=== PATIENT | male | born 1975 | race African-American/Black ===

== ENCOUNTER 2020-08-26 16:27 | Emergency (ER) | payer MEDICAID, SELFPAY ==
--- NOTE | ~2020-08-26 | XR_ITS ---
EXAMINATION: CHEST 2 VIEWS CLINICAL INFORMATION: high bs . COMPARISON: No recent pertinent prior studies are available for comparison. TECHNIQUE: PA and lateral views of the chest obtained. FINDINGS: The lungs are hypoexpanded. No focal infiltrate, effusion, edema, or pneumothorax. Cardiac and mediastinal silhouettes are within normal limits for technique. No acute bony abnormality seen XR/XR chest 2V IMPRESSION: No evidence of acute disease
--- NOTE | 2020-08-26 17:25 | ECG_ITS ---
Test Reason : HYPERGLYCEMIA Blood Pressure : / mmHG Vent. Rate : 050 BPM Atrial Rate : 050 BPM P-R Int : 170 ms QRS Dur : 080 ms QT Int : 412 ms P-R-T Axes : 025 025 017 degrees QTc Int : 375 ms Sinus bradycardia Otherwise normal ECG No previous ECGs available Referred By: Lyly Trotter Electronically Signed By:DIXON BOATENG
[2020-08-26 18:23] LABS: MANUAL DIFF FLAG NO
[2020-08-26 18:28] LABS: Basophils Percent Auto 0.4 % (0-2); Eosinophils Absolute Auto 0.1 X10*3/uL (0.0-0.4); Eosinophils Percent Auto 2.2 % (0-4); Hemoglobin 14.8 g/dl (14.0-18.0); Imm Gran Abs Auto 0.02 X10*3/uL (0.00-0.03); Imm Gran Pct Auto 0.4 % (0.0-0.4); Lymphocytes Absolute Auto 2.3 X10*3/uL (1.2-4.9); Lymphocytes Percent Auto 49.6 % (20-40); Mean Corpuscular HGB Conc 32.9 g/dl (31.0-36.0); Mean Corpuscular Hemoglobin 29.8 pg (27.0-33.0); Mean Corpuscular Volume 90.5 fL (80-98); Mean Platelet Volume 12.3 fL (9.4-12.4); Monocytes Absolute Auto 0.3 X10*3/uL (0.1-1.2); Monocytes Percent Auto 6.7 % (2-11); Neutrophils Absolute Auto 1.9 X10*3/uL (2.0-8.3); Neutrophils Percent Auto 40.7 % (45-73); Platelet Count 165 X10*3/uL (160-400); Red Blood Count 4.97 X10*6/uL (4.60-5.80); Red Cell Distribution Width 11.9 % (11.0-16.0); White Blood Count 4.6 X10*3/uL (4.8-10.8)
[2020-08-26 18:38] LABS: INTERNATIONAL NORM RATIO 0.9 (0.9-1.1); Prothrombin Time 11.1 SEC (10.8-13.0)
[2020-08-26 18:58] LABS: Alanine Aminotransferase 43 U/L (0-40); Albumin Level 4.7 g/dL (3.5-5.0); Alkaline Phosphatase 72 U/L (39-117); Anion Gap 16 (12-20); Aspartate Amino Transferase 30 U/L (5-37); Bilirubin Direct 0.2 mg/dL (0.0-0.5); Bilirubin Total 0.5 mg/dL (0.0-1.0); Blood Urea Nitrogen 13 mg/dL (9-16); Calcium 9.8 mg/dL (8.4-10.2); Carbon Dioxide 26 mmol/L (22-29); Chloride 105 mmol/L (96-108); Estimated Glomerular Filt Rate > 60; Glucose Random 94 mg/dL (60-115); Magnesium 1.9 mg/dL (1.6-2.6); Potassium 4.7 mmol/L (3.3-5.1); Sodium 142 mmol/L (135-145); Total Protein 7.9 g/dL (6.5-8.0)
[2020-08-26 19:44] VITALS: BP 132/84; PULSE 59; RESP 18; TEMP 36.9; O2SAT 100; BMI 32.8
--- NOTE | 2020-08-26 19:44 | PC.NURSE ---
PATIENT IN WAITING ROOM, CALLED MULTIPLE TIMES FOR TRIAGE PRIOR.
[2020-08-26 19:54] LABS: Acetone, serum QL Negative (Negative)
[2020-08-26 20:00] VITALS: BP 146/95; PULSE 56; RESP 18; O2SAT 99
--- NOTE | 2020-08-26 20:41 | ED.GENADULT ---
HPI - General Adult General Chief complaint: General Medical Stated complaint: high bs Time Seen by Provider: 08/26/20 17:25 Source: patient Mode of arrival: ambulatory Limitations: no limitations History of Present Illness HPI narrative: Dizziness with high blood sugar for one week Onset (ago): week(s) Severity: moderate Associated symptoms: weakness Related Data Previous Rx's Medication Instructions Recorded meclizine 25 mg PO TID PRN #14 tab 08/26/20 Allergies Allergy/AdvReac Type Severity Reaction Status Date / Time No Known Allergies Allergy Verified 08/26/20 17:25 Review of Systems Constitutional: Constitutional: Reports no additional constitutional complaints Eyes: Eyes: Reports no additional eye complaints ENT: Denies dizziness Cardiovascular: Cardiovascular: Reports no additional cardiovascular complaints Respiratory: Respiratory: Reports as per HPI Gastrointestinal: Gastrointestinal: Reports no additional gastrointestinal complaints Musculoskeletal: Musculoskeletal: Reports no additional musculoskeletal complaints Integumentary/Breasts: Skin/Breast: Denies rash Neurologic: Reports system reviewed and no additional complaints, except as documented, Denies dizziness and Denies Sensory deficit (Neuro) Psychiatric: Psychiatric: Denies anxiety [facility] Past Medical History Medical History Diabetes Social History Social History Advance Directives: No Advance Directives Information Provided: Yes Physical Exam Vital Signs: Vital Signs: Last Vital Signs Temp 98.5 F 08/26/20 19:44 Pulse 59 08/26/20 19:44 Resp 18 08/26/20 19:44 BP 132/84 08/26/20 19:44 Pulse Ox 100 08/26/20 19:44 Body Mass Index 32.8 Const: General: healthy appearing Nutritional Appearance: average body habitus Orientation/consciousness: oriented to person and patient oriented x3 Limitations: no limitations HENMT: Head: Yes normal to inspection Ears: external ears normal General nose exam: Normal external nose present Mouth: Normal oral and palatal mucosa present and oropharynx normal Throat: Yes posterior oropharynx normal Eyes: General: appearance normal, both eyes and all related structures Neck: Other: supple Neck: Yes normal visual inspection Chest: Chest palpation & inspection: normal inspection of the chest Resp: Auscultation: clear to auscultation bilaterally Cardio: Jugular venous distension: no JVD Rate: regular rate Rhythm: regular rhythm Heart sounds: S1 normal heart sound present and S2 normal heart sound present GI: Inspection: Yes normal to inspection Palpation (GI): Soft to palpation, nontender and No hepatosplenomegaly present Auscultation: normal bowel sounds : General: Yes no CVA tenderness Back/Spine/Pelvis: Back: no CVA tenderness Skin: General skin exam: no rashes or lesions noted Neuro: Other: slight room spinning with body positioning, no nystagmus General: oriented to person and patient oriented x3 Cranial nerves: Yes CN's II-XII intact bilaterally Motor exam (neuro): 5/5 motor strength present throughout Sensory Exam: No Sensory deficit (Neuro) Extrem: General: Yes normal to inspection Psych: Appearance: grossly normal Medical Decision Making MDM Narrative Medical decision making narrative: Impression is either hyperglycemia now resolved or vertigo. Will start meclizine and dc home Lab Data Result diagrams: 08/26/20 18:13 08/26/20 18:13 Labs: Lab Results 08/26/20 08/26/20 08/26/20 Range/Units 18:13 18:13 18:13 WBC 4.6 L (4.8-10.8) X10*3/uL RBC 4.97 (4.60-5.80) X10*6/uL Hgb 14.8 (14.0-18.0) g/dl Hct 45.0 (42-52) % MCV 90.5 (80-98) fL MCH 29.8 (27.0-33.0) pg MCHC 32.9 (31.0-36.0) g/dl RDW 11.9 (11.0-16.0) % Plt Count 165 (160-400) X10*3/uL MPV 12.3 (9.4-12.4) fL Immature Gran % (Auto) 0.4 (0.0-0.4) % Neut % (Auto) 40.7 L (45-73) % Lymph % (Auto) 49.6 H (20-40) % [place] % (Auto) 6.7 (2-11) % Eos % (Auto) 2.2 (0-4) % Baso % (Auto) 0.4 (0-2) % Lymph # (Auto) 2.3 (1.2-4.9) X10*3/uL [place] # (Auto) 0.3 (0.1-1.2) X10*3/uL Eos # (Auto) 0.1 (0.0-0.4) X10*3/uL Baso # (Auto) 0.0 (0.0-0.2) X10*3/uL Abs Immat Gran (auto) 0.02 (0.00-0.03) X10*3/uL Absolute Neuts (auto) 1.9 L (2.0-8.3) X10*3/uL Absolute Nucleated RBC 0.000 (0.0-0.012) X10*3/uL Nucleated RBC % (auto) 0.0 (0.0-0.2) /100WBC Hold Purple Top SEE NOTE PT 11.1 (10.8-13.0) SEC INR 0.9 (0.9-1.1) Sodium (135-145) mmol/L Potassium (3.3-5.1) mmol/L Chloride (96-108) mmol/L Carbon Dioxide (22-29) mmol/L Anion Gap (12-20) BUN (9-16) mg/dL Creatinine (0.5-1.4) mg/dL Estim Creat Clear Calc Estimated GFR Random Glucose (60-115) mg/dL Calcium (8.4-10.2) mg/dL Magnesium (1.6-2.6) mg/dL Total Bilirubin (0.0-1.0) mg/dL Direct Bilirubin (0.0-0.5) mg/dL AST (5-37) U/L ALT (0-40) U/L Alkaline Phosphatase (39-117) U/L Total Protein (6.5-8.0) g/dL Albumin (3.5-5.0) g/dL Acetone, Qual (Negative) 08/26/20 Range/Units 18:13 WBC (4.8-10.8) X10*3/uL RBC (4.60-5.80) X10*6/uL Hgb (14.0-18.0) g/dl Hct (42-52) % MCV (80-98) fL MCH (27.0-33.0) pg MCHC (31.0-36.0) g/dl RDW (11.0-16.0) % Plt Count (160-400) X10*3/uL MPV (9.4-12.4) fL Immature Gran % (Auto) (0.0-0.4) % Neut % (Auto) (45-73) % Lymph % (Auto) (20-40) % [place] % (Auto) (2-11) % Eos % (Auto) (0-4) % Baso % (Auto) (0-2) % Lymph # (Auto) (1.2-4.9) X10*3/uL [place] # (Auto) (0.1-1.2) X10*3/uL Eos # (Auto) (0.0-0.4) X10*3/uL Baso # (Auto) (0.0-0.2) X10*3/uL Abs Immat Gran (auto) (0.00-0.03) X10*3/uL Absolute Neuts (auto) (2.0-8.3) X10*3/uL Absolute Nucleated RBC (0.0-0.012) X10*3/uL Nucleated RBC % (auto) (0.0-0.2) /100WBC Hold Purple Top PT (10.8-13.0) SEC INR (0.9-1.1) Sodium 142 (135-145) mmol/L Potassium 4.7 (3.3-5.1) mmol/L Chloride 105 (96-108) mmol/L Carbon Dioxide 26 (22-29) mmol/L Anion Gap 16 (12-20) BUN 13 (9-16) mg/dL Creatinine 0.96 (0.5-1.4) mg/dL Estim Creat Clear Calc TNP Estimated GFR > 60 Random Glucose 94 (60-115) mg/dL Calcium 9.8 (8.4-10.2) mg/dL Magnesium 1.9 (1.6-2.6) mg/dL Total Bilirubin 0.5 (0.0-1.0) mg/dL Direct Bilirubin 0.2 (0.0-0.5) mg/dL AST 30 (5-37) U/L ALT 43 H (0-40) U/L Alkaline Phosphatase 72 (39-117) U/L Total Protein 7.9 (6.5-8.0) g/dL Albumin 4.7 (3.5-5.0) g/dL Acetone, Qual Negative (Negative) Discharge Plan Discharge Clinical Impression: Vertigo, Hyperglycemia Patient Disposition: Home, Self-Care Instructions: Vertigo (ED), Diabetic Hyperglycemia (ED) Prescriptions: New meclizine 25 mg tablet 25 mg PO TID PRN (Reason: dizziness) Qty: 14 RF: 0 Referrals: Daljit Barrett MD [Primary Care Provider] - 2 days Interventions: LWBS Worksheet Last Done: 08/26/20 19:11
[2020-08-26] MEDS: Meclizine HCl 25 MG TABLET PO (20:59)
[2020-08-27 06:58] LABS: Glucose, Whole Blood 112 mg/dL (60-115)
== END 2020-08-26 21:11 | disposition home or self-care (01) ==
PROVIDERS: Physician Assistant Medical; Emergency Provider Emergency Medicine; PCP Internal Medicine
DX: R42 Dizziness and giddiness (principal); E11.65 Type 2 diabetes mellitus with hyperglycemia
CPT/HCPCS: 36415; 71046; 80048; 80076; 82009; 82947; 83735; 85025; 85610; 93005; 99283; 99284

== ENCOUNTER 2020-10-07 22:50 | Emergency (ER) | payer MEDICAID, SELFPAY ==
--- NOTE | ~2020-10-07 | XR_ITS ---
EXAMINATION: XR CHEST CLINICAL INFORMATION: Chest pain COMPARISON: 08/26/2020 TECHNIQUE: Frontal view of the chest was obtained. FINDINGS: Lung volumes are symmetric. No focal consolidation is seen. No evidence of pneumothorax, pleural effusion, or pulmonary edema. The cardiomediastinal contour is unremarkable. No acute osseous findings are seen. XR/XR chest 1V IMPRESSION: No acute cardiopulmonary findings.
--- NOTE | 2020-10-07 07:37 | ECG_ITS ---
Test Reason : CHEST PAIN Blood Pressure : / mmHG Vent. Rate : 058 BPM Atrial Rate : 058 BPM P-R Int : 162 ms QRS Dur : 080 ms QT Int : 384 ms P-R-T Axes : 046 024 024 degrees QTc Int : 376 ms Sinus bradycardia Normal EKG When compared with ECG of 26-AUG-2020 18:02, No significant change was found Referred By: Luis Felipe Cooper Electronically Signed By:DIXON BOATENG
[2020-10-08 00:09] VITALS: BP 119/82; PULSE 57; RESP 16; TEMP 36.5; O2SAT 98; BMI 27.4
--- NOTE | 2020-10-08 00:49 | ECG_ITS ---
Test Reason : CHEST PAIN Blood Pressure : / mmHG Vent. Rate : 057 BPM Atrial Rate : 057 BPM P-R Int : 168 ms QRS Dur : 080 ms QT Int : 408 ms P-R-T Axes : 049 034 027 degrees QTc Int : 397 ms Sinus bradycardia Otherwise normal ECG When compared with ECG of 07-OCT-2020 23:07, No significant change was found Referred By: Luis Felipe Cooper Electronically Signed By:DIXON BOATENG
--- NOTE | 2020-10-08 00:50 | ED.GENADULT ---
HPI - General Adult General Chief complaint: General Medical Stated complaint: CHEST PALPITATIONS Time Seen by Provider: 10/08/20 00:48 Source: patient Mode of arrival: ambulatory Limitations: no limitations History of Present Illness HPI narrative: Patient with no known coronary artery disease history of diabetes notice palpitation episodes since yesterday evening feel strong extra beat off and on with chest discomfort , numbness feeling of the left side of the body get worse on deep breath patient never had similar complaints in the past no shortness of breath no cough no diaphoresis no nausea no vomiting no relation with breathing no cough pain increases on palpation Related Data Previous Rx's Medication Instructions Recorded meclizine 25 mg PO TID PRN #14 tab 08/26/20 Allergies Allergy/AdvReac Type Severity Reaction Status Date / Time No Known Allergies Allergy Verified 08/26/20 17:25 Review of Systems Review of Systems: Constitutional : No Weight loss, No Fever, No Chills ENT/Mouth : No sore throat, No Rhinorrhea Eyes: No Eye Pain, No Swelling Cardiovascular : +Chest Pain, + palpitations Respiratory : No Cough, No Sputum, no shortness of breath Gastrointestinal : no Nausea, No Vomiting, No Diarrhea, No abdominal Pain, no black stools Genitourinary : No Dysuria, No Urinary Frequency Musculoskeletal : No joint pain, No Myalgias, No Joint Swelling Skin : No Skin Lesions, No rash Neuro : No Weakness, No Numbness, No Dizziness, No Headache Psych : No Anxiety/Panic, No Depression Heme/Lymph: No Bruising, No Lymphadenopathy Endocrine : No Polyuria, No Polydipsia All other systems reviewed and are negative [facility] Past Medical History Medical History Diabetes Social History Social History Alcohol intake: current Alcohol intake frequency: a few times a week Smoking Status: Current every day smoker Use of substances other than those prescribed or required for medical reasons: No Advance Directives: No Advance Directives Information Provided: No Physical Exam Vital Signs: Vital Signs: Last Vital Signs Temp 97.7 F 10/08/20 00:09 Pulse 57 10/08/20 00:09 Resp 16 10/08/20 00:09 BP 119/82 10/08/20 00:09 Pulse Ox 98 10/08/20 00:09 Body Mass Index 27.4 Appearance: Alert. Oriented X3. No acute distress. Eyes: PERRLA, No Nystagmus ENT: Pharynx normal. Oral Mucosa moist Neck: Normal inspection. Neck supple. CVS: Normal heart rate and rhythm. Pulses normal. Respiratory: No respiratory distress. Equal air entry bilateral, no wheezing/rales/rhonchi Abdomen: Soft and nontender. Bowel sounds are present, no mass palpable, no CVA tenderness Skin: Skin warm and dry. Normal skin color. Normal skin turgor. Extremities: No lower extremity edema. No calf tenderness Neuro: Oriented X 3. No motor deficit. 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 Result diagrams: 10/08/20 01:24 10/08/20 01:24 Labs: Lab Results 10/08/20 10/08/20 10/08/20 Range/Units 01:24 01:24 01:24 WBC 3.8 L (4.8-10.8) X10*3/uL RBC 4.65 (4.60-5.80) X10*6/uL Hgb 14.0 (14.0-18.0) g/dl Hct 42.1 (42-52) % MCV 90.5 (80-98) fL MCH 30.1 (27.0-33.0) pg MCHC 33.3 (31.0-36.0) g/dl RDW 12.0 (11.0-16.0) % Plt Count 165 (160-400) X10*3/uL MPV 11.4 (9.4-12.4) fL Immature Gran % (Auto) 0.3 (0.0-0.4) % Neut % (Auto) 34.3 L (45-73) % Lymph % (Auto) 54.4 H (20-40) % [place] % (Auto) 8.0 (2-11) % Eos % (Auto) 2.7 (0-4) % Baso % (Auto) 0.3 (0-2) % Lymph # (Auto) 2.0 (1.2-4.9) X10*3/uL [place] # (Auto) 0.3 (0.1-1.2) X10*3/uL Eos # (Auto) 0.1 (0.0-0.4) X10*3/uL Baso # (Auto) 0.0 (0.0-0.2) X10*3/uL Abs Immat Gran (auto) 0.01 (0.00-0.03) X10*3/uL Absolute Neuts (auto) 1.3 L (2.0-8.3) X10*3/uL Absolute Nucleated RBC 0.000 (0.0-0.012) X10*3/uL Nucleated RBC % (auto) 0.0 (0.0-0.2) /100WBC PT 10.6 L (10.8-13.0) SEC INR 0.9 (0.9-1.1) APTT 44.5 H (24.1-38.0) SEC Sodium 141 (135-145) mmol/L Potassium 4.4 (3.3-5.1) mmol/L Chloride 105 (96-108) mmol/L Carbon Dioxide 28 (22-29) mmol/L Anion Gap 12 (12-20) BUN 15 (9-16) mg/dL Creatinine 1.01 (0.5-1.4) mg/dL Estim Creat Clear Calc 86.9 Estimated GFR > 60 Random Glucose 121 H (60-115) mg/dL Calcium 9.8 (8.4-10.2) mg/dL Total Bilirubin 0.6 (0.0-1.0) mg/dL Direct Bilirubin 0.2 (0.0-0.5) mg/dL AST 28 (5-37) U/L ALT 34 (0-40) U/L Alkaline Phosphatase 66 (39-117) U/L Troponin I High Sens (<3.5-35.0) ng/L Total Protein 7.1 (6.5-8.0) g/dL Albumin 4.3 (3.5-5.0) g/dL /11/23 Range/Units 01:24 WBC (4.8-10.8) X10*3/uL RBC (4.60-5.80) X10*6/uL Hgb (14.0-18.0) g/dl Hct (42-52) % MCV (80-98) fL MCH (27.0-33.0) pg MCHC (31.0-36.0) g/dl RDW (11.0-16.0) % Plt Count (160-400) X10*3/uL MPV (9.4-12.4) fL Immature Gran % (Auto) (0.0-0.4) % Neut % (Auto) (45-73) % Lymph % (Auto) (20-40) % [place] % (Auto) (2-11) % Eos % (Auto) (0-4) % Baso % (Auto) (0-2) % Lymph # (Auto) (1.2-4.9) X10*3/uL [place] # (Auto) (0.1-1.2) X10*3/uL Eos # (Auto) (0.0-0.4) X10*3/uL Baso # (Auto) (0.0-0.2) X10*3/uL Abs Immat Gran (auto) (0.00-0.03) X10*3/uL Absolute Neuts (auto) (2.0-8.3) X10*3/uL Absolute Nucleated RBC (0.0-0.012) X10*3/uL Nucleated RBC % (auto) (0.0-0.2) /100WBC PT (10.8-13.0) SEC INR (0.9-1.1) APTT (24.1-38.0) SEC Sodium (135-145) mmol/L Potassium (3.3-5.1) mmol/L Chloride (96-108) mmol/L Carbon Dioxide (22-29) mmol/L Anion Gap (12-20) BUN (9-16) mg/dL Creatinine (0.5-1.4) mg/dL Estim Creat Clear Calc Estimated GFR Random Glucose (60-115) mg/dL Calcium (8.4-10.2) mg/dL Total Bilirubin (0.0-1.0) mg/dL Direct Bilirubin (0.0-0.5) mg/dL AST (5-37) U/L ALT (0-40) U/L Alkaline Phosphatase (39-117) U/L Troponin I High Sens < 3.5 (<3.5-35.0) ng/L Total Protein (6.5-8.0) g/dL Albumin (3.5-5.0) g/dL ECG Data Attestation: I personally reviewed and interpreted this ECG as follows: Interpretation: sinus bradycardia heart rate 57 beats per minute normal intervals normal axis no acute ST T wave changes no acute ischemia Scores Heart Score History: -0- slightly suspicious ECG: -0- normal Age: -0- < or = 45 Risk factory: -1- 1 or 2 risk factors Troponin: -0- < or = normal limit Score: 1 Risk: 1.7% Discharge Plan Discharge Clinical Impression: Heart palpitations Chest pain Qualifiers: Chest pain type: unspecified Qualified Code(s): R07.9 - Chest pain, unspecified Patient Disposition: Home, Self-Care Instructions: Chest Pain (ED), Heart Palpitations (ED) Additional Instructions: Follow-up with your PCP/cardiology for further evaluation for palpitations/chest Report to ER if any syncope episode worsening of chest pain Prescriptions: No Action meclizine 25 mg tablet 25 mg PO TID PRN (Reason: dizziness) Qty: 14 RF: 0 Referrals: Pradeep King MD [Physician] - 1 week Interventions: ED Discharge Assessment Last Done: 10/08/20 02:19
[2020-10-08 01:32] LABS: MANUAL DIFF FLAG NO
[2020-10-08 01:33] LABS: Basophils Percent Auto 0.3 % (0-2); Eosinophils Absolute Auto 0.1 X10*3/uL (0.0-0.4); Eosinophils Percent Auto 2.7 % (0-4); Hematocrit 42.1 % (42-52); Imm Gran Abs Auto 0.01 X10*3/uL (0.00-0.03); Imm Gran Pct Auto 0.3 % (0.0-0.4); Lymphocytes Percent Auto 54.4 % (20-40); Mean Corpuscular HGB Conc 33.3 g/dl (31.0-36.0); Mean Corpuscular Hemoglobin 30.1 pg (27.0-33.0); Mean Corpuscular Volume 90.5 fL (80-98); Mean Platelet Volume 11.4 fL (9.4-12.4); Monocytes Absolute Auto 0.3 X10*3/uL (0.1-1.2); Neutrophils Absolute Auto 1.3 X10*3/uL (2.0-8.3); Neutrophils Percent Auto 34.3 % (45-73); Platelet Count 165 X10*3/uL (160-400); Red Blood Count 4.65 X10*6/uL (4.60-5.80); White Blood Count 3.8 X10*3/uL (4.8-10.8)
[2020-10-08 01:41] LABS: INTERNATIONAL NORM RATIO 0.9 (0.9-1.1); Prothrombin Time 10.6 SEC (10.8-13.0)
[2020-10-08 01:54] LABS: Partial Thromboplastin Time 44.5 SEC (24.1-38.0)
[2020-10-08 01:57] LABS: Troponin-I High Sensitivity < 3.5 ng/L (<3.5-35.0)
[2020-10-08 02:00] LABS: Alanine Aminotransferase 34 U/L (0-40); Albumin Level 4.3 g/dL (3.5-5.0); Alkaline Phosphatase 66 U/L (39-117); Anion Gap 12 (12-20); Aspartate Amino Transferase 28 U/L (5-37); Bilirubin Direct 0.2 mg/dL (0.0-0.5); Bilirubin Total 0.6 mg/dL (0.0-1.0); Blood Urea Nitrogen 15 mg/dL (9-16); Calcium 9.8 mg/dL (8.4-10.2); Carbon Dioxide 28 mmol/L (22-29); Chloride 105 mmol/L (96-108); Creatinine Clr Calc Pharmacy 86.9; Estimated Glomerular Filt Rate > 60; Glucose Random 121 mg/dL (60-115); Potassium 4.4 mmol/L (3.3-5.1); Sodium 141 mmol/L (135-145); Total Protein 7.1 g/dL (6.5-8.0)
== END 2020-10-08 02:27 | disposition home or self-care (01) ==
PROVIDERS: Emergency Provider Internal Medicine
DX: R07.9 Chest pain, unspecified (principal); R00.2 Palpitations; E11.9 Type 2 diabetes mellitus without complications
CPT/HCPCS: 36415; 71045; 80048; 80076; 84484; 85025; 85610; 85730; 93005; 99284

== ENCOUNTER 2023-04-26 10:16 | Outpatient (REF) | payer MEDICAID, SELFPAY ==
[2023-04-26 14:57] LABS: Cholesterol 145 mg/dL (<200); HDL Cholesterol 45 mg/dL (>40); LDL Cholesterol Calculated 79 mg/dL (<100); Triglycerides 108 mg/dL (<150)
== END 2023-04-26 10:17 | disposition home or self-care (01) ==
LOC: HO.CHCLDS 10:16
PROVIDERS: Visit Provider Internal Medicine
DX: E78.00 Pure hypercholesterolemia, unspecified (principal)
CPT/HCPCS: 36415; 80061

== ENCOUNTER 2024-01-22 08:41 | Outpatient (REF) | payer MEDICAID, SELFPAY ==
[2024-01-22 14:21] LABS: MANUAL DIFF FLAG NO
[2024-01-22 14:28] LABS: Basophils Percent Auto 0.2 % (0-2); Eosinophils Absolute Auto 0.2 X10*3/uL (0.0-0.4); Eosinophils Percent Auto 2.8 % (0-4); Hematocrit 45.1 % (42.0-52.0); Hemoglobin 15.5 g/dl (14.0-18.0); Imm Gran Abs Auto 0.01 X10*3/uL (0.00-0.03); Imm Gran Pct Auto 0.2 % (0.0-0.4); Lymphocytes Absolute Auto 1.6 X10*3/uL (1.2-4.9); Lymphocytes Percent Auto 30.4 % (20-40); Mean Corpuscular HGB Conc 34.4 g/dl (31.0-36.0); Mean Corpuscular Hemoglobin 31.1 pg (27.0-33.0); Mean Corpuscular Volume 90.6 fL (80.0-98.0); Mean Platelet Volume 11.8 fL (9.4-12.4); Monocytes Absolute Auto 0.4 X10*3/uL (0.1-1.2); Monocytes Percent Auto 7.4 % (2-11); Neutrophils Absolute Auto 3.1 x10*3/uL (2.0-8.3); Platelet Count 173 X10*3/uL (160-400); Red Blood Count 4.98 X10*6/uL (4.60-5.80); Red Cell Distribution Width 12.8 % (11.0-16.0); White Blood Count 5.3 X10*3/uL (4.8-10.8)
[2024-01-22 14:54] LABS: Alanine Aminotransferase 33 U/L (0-40); Albumin Level 4.2 g/dL (3.5-5.0); Alkaline Phosphatase 69 U/L (39-117); Anion Gap 14 (12-20); Aspartate Amino Transferase 20 U/L (5-37); Bilirubin Total 0.8 mg/dL (0.0-1.0); Blood Urea Nitrogen 10 mg/dL (9-16); Carbon Dioxide 23 mmol/L (22-29); Chloride 108 mmol/L (96-108); Cholesterol 153 mg/dL (<200); Estimated Glomerular Filt Rate > 60; Glucose Random 135 mg/dL (60-115); HDL Cholesterol 52 mg/dL (>40); LDL Cholesterol Calculated 77 mg/dL (<100); Potassium 4.2 mmol/L (3.3-5.1); Sodium 141 mmol/L (135-145); Total Protein 7.7 g/dL (6.5-8.0); Triglycerides 120 mg/dL (<150)
[2024-01-22 14:56] LABS: Microalbum/Creatinine Ratio Ur 91.2 ug/mg cr (<30)
[2024-01-22 15:00] LABS: TSH reflex Free T4 3.58 uIU/mL (0.32-4.0)
== END 2024-01-22 08:42 | disposition home or self-care (01) ==
LOC: HO.CHCLDS 08:41
PROVIDERS: Visit Provider Internal Medicine
DX: E11.9 Type 2 diabetes mellitus without complications (principal); E78.00 Pure hypercholesterolemia, unspecified
CPT/HCPCS: 36415; 80053; 80061; 82043; 82570; 84443; 85025

== ENCOUNTER 2024-01-23 16:51 | Emergency (ER) | payer MEDICAID, SELFPAY ==
[2024-01-23 17:12] VITALS: BP 137/93; PULSE 85; RESP 18; TEMP 37.2; O2SAT 98; BMI 24.2
--- NOTE | 2024-01-23 18:10 | ED_ITS ---
HPI - General Adult General Chief complaint: Skin/Abscess/Foreign Body Stated complaint: left arm pain Time Seen by Provider: 01/23/24 18:10 Source: patient, RN notes reviewed and old records reviewed Mode of arrival: ambulatory Limitations: no limitations History of Present Illness ED Provider: Christal ESPINOSA narrative: 48-year-old male presents for evaluation of redness, pain and swelling to his left upper arm. Patient reports that he had a vaccine last Monday, 4 days ago. He is not sure exactly which vaccine he received that was given to him by his primary doctor He states that since then, the area has become red, painful and swollen He has pain with moving the left shoulder/upper arm He denies any known allergies. He reports a history of diabetes He has not taken his temperature but did have some chills last night Related Data Previous Rx's ?Medication ?Instructions ?Recorded meclizine 25 mg tablet 25 mg PO TID PRN dizziness #14 tabs 08/26/20 cephalexin 500 mg capsule 500 mg PO QID #28 caps 01/23/24 doxycycline hyclate 100 mg tablet 100 mg PO BID #14 tabs 01/23/24 Allergies Allergy/AdvReac Type Severity Reaction Status Date / Time No Known Allergies Allergy Verified 01/23/24 17:14 Review of Systems 2 Constitutional: Constitutional: Denies body ache(s), Reports chills and Denies fever(s) Eyes: Eyes: Denies blurry vision ENT: Denies sinus pain and Denies sore throat Cardiovascular: Cardiovascular: Denies chest pain and Denies dyspnea Respiratory: Respiratory: Denies cough and Denies dyspnea Gastrointestinal: Gastrointestinal: Denies abdominal pain, Denies nausea and Denies vomiting Integumentary/Breasts: Skin/Breast: Reports erythema, Reports skin pain and Reports skin swelling PMFSH Past Medical History Medical History Diabetes Social History Social History Alcohol intake: current Alcohol intake frequency: a few times a week Advance Directives: No Advance Directives Information Provided: No Do you have a plan to hurt others: No Plan Physical Exam ED Vital Signs: Vital Signs - 24 hr 01/23/24 17:12 01/23/24 18:13 Temperature 98.9 F 98.9 F Pulse Rate 85 85 Respiratory Rate 18 18 Blood Pressure 137/93 H 137/93 H Pulse Oximetry 98 98 Oxygen Delivery Method Room Air Room Air BMI result Body Mass Index 24.2 Const General: healthy appearing, comfortable, no acute distress, alert and awake Nutritional Appearance: well nourished Orientation/consciousness: patient oriented x3 HENMT Head: Yes normocephalic and Yes atraumatic Throat: Yes posterior oropharynx normal Eyes Eyelids: Yes eyelids normal Conjunctivae: conjunctivae normal Sclerae: sclerae normal Corneas: corneas normal Pupils: Equal, round and reactive pupils present EOM: EOMs intact bilaterally Neck Neck: Yes full ROM Resp Effort & Inspection: normal respiratory effort, able to speak in complete sentences, no audible wheezes and not labored Auscultation: clear to auscultation bilaterally Cardio Rate: regular rate Rhythm: regular rhythm GI Inspection: No distended Palpation (GI): Soft to palpation, not firm, nontender, no guarding and not rigid Skin Other: Patient has an area of erythema with increased warmth and mild edema to the left lateral anterior upper arm. This is not circumferential. This area is tender to palpation with no obvious fluctuance. There is no tenderness to the left elbow or shoulder specifically the patient retains good range of motion of these joints General skin exam: elasticity normal Neuro General: patient oriented x3 Cranial nerves: Yes Equal, round and reactive pupils present and Yes Bilaterally intact EOM present Cognition (Neuro): normal cognition Medical Decision Making Medical Decision Making MDM Narrative: 48-year-old male presents for evaluation of redness, swelling, pain to the left upper arm consistent with cellulitis. He is afebrile, his vital signs are stable, no evidence of systemic infection, given that he is a diabetic we will double cover him with cephalexin and doxycycline. I trace the area with a marker pen. Return precautions were given. Differential Diagnosis Differential Diagnoses: The differential diagnosis associated with the presentation includes Cellulitis Medication reaction Septic joint Arthritis Calcific tendinitis Dermatitis Discharge Plan Discharge Clinical Impression: Cellulitis Patient Disposition: Home, Self-Care Instructions: Cellulitis (ED) Additional Instructions: You appear to have an infection around the area of your injection. Take both antibiotics as prescribed Follow-up with your primary doctor Return for new or worsening symptoms Prescriptions: New cephalexin 500 mg capsule 500 mg PO QID Qty: 28 0RF doxycycline hyclate 100 mg tablet 100 mg PO BID Qty: 14 0RF No Action meclizine 25 mg tablet 25 mg PO TID PRN (Reason: dizziness) Qty: 14 0RF Stand Alone Forms: Work/School Release Interventions: ED Discharge Assessment Last Done: 01/23/24 18:13 Discharge Date/Time: 01/23/24 18:17 Print Language: Turkish
[2024-01-23 18:13] VITALS: BP 137/93; PULSE 85; RESP 18; TEMP 37.2; O2SAT 98
--- NOTE | 2024-01-23 18:13 | PC.NURSE ---
Evtiera by [facility] cleared for dc home.
== END 2024-01-23 18:17 | disposition home or self-care (01) ==
PROVIDERS: Emergency Provider Emergency Medicine; PCP Internal Medicine
DX: L03.114 Cellulitis of left upper limb (principal); M79.602 Pain in left arm
CPT/HCPCS: 99282; 99283

== ENCOUNTER 2024-10-11 10:23 | Outpatient (REF) | payer MEDICAID, SELFPAY ==
--- NOTE | ~2024-10-11 | XR_ITS ---
EXAMINATION: XR CHEST CLINICAL INFORMATION: COUGH COMPARISON: October 08, 2020 TECHNIQUE: 2 views of the chest were obtained. FINDINGS: No consolidation, pleural fissure pneumothorax. No hyperinflation. Cardiomediastinal silhouette size is normal. Probable calcified plaque aortic arch. Osseous structures are intact. XR/XR chest 2V IMPRESSION: No acute airspace disease. Electronically signed by: Daniel Eller MD 10/11/2024 10:53 AM EDT
--- OUTSIDE RECORDS SUMMARY | 2024-10-11 10:55 | XMS_ITS | Encounter Summary ---
Author Organization [email or web address] Address [address] [place] [address] Care Team Providers Care Wardrobe Manager Name Role Phone Daljit Barrett MD Primary Care Provider [phone] Encounter Details Date Type Department Care Team ([facility] Contact Info) Description 12/23/2022 Orders Only [facility] [address], [place] [phone] Daljit Barrett MD [address], [place] [phone] Type 2 diabetes mellitus without complication, without long-term current use of insulin ([facility]) (Primary Dx) Social History Tobacco Use Types Packs/Day Years Used Date Smoking Tobacco: Never Smokeless Tobacco: Never Alcohol Use Standard Drinks/Week Comments Never 0 (1 standard drink = 0.6 oz pur e alcohol) Depression Answer Date Recorded Patient Health Questionnaire-2 Score 0 06/14/2022 Sex and Gender Information Value Date Recorded Sex Assigned at Male 04/04/2022 10:31 AM EDT Legal Sex Male 10:31 AM EDT Gender Identity Choose not to disclose 10:31 AM EDT Sexual Orientation Choose not to disclose 2021 10:31 AM EDT documented as of this encounter Plan of Treatment Upcoming Encounters Date Type Department Care Team ([facility] Contact Info) Description 10/24/2024 11:15 AM EDT Office Visit [facility] [address], [place] [phone] Daljit Barrett MD [address], [place] [phone] documented as of this encounter Visit Diagnoses Diagnosis Type 2 diabetes mellitus without complication, without long-term current use of insulin ([facility])- Primary documented in this encounter Care Teams Wardrobe Manager Relationship Specialty Start Date End Date Daljit Barrett MD [address] [place] [id number] PCP - General Internal Medicine 09/09/16 documented as of this encounter
--- OUTSIDE RECORDS SUMMARY | 2024-10-11 10:55 | XMS_ITS | Encounter Summary ---
Author Organization [employer] Address [address] [facility] [address] [place] [address] Care Team Providers Care Underwriting Technician Name Role Phone Daljit Barrett MD Primary Care Provider [phone] Encounter Details Date Type Department Care Team (Late Contact Info) Description 02/28/2023 Orders Only [facility] [address] [place] [address] Daljit Barrett MD [address] [place] [address] Screening for colon cancer Social History Tobacco Use Types Packs/Day Years [...] Upcoming Encounters Date Type Department Care Team (Late st Contact Info) Description 10/24/2024 11:15 AM EDT Office Visit [facility] [address] [place] [address] Daljit Barrett MD [address] [place] [address] documented as of this encounter Procedures Procedure Name Priority Date/Time Associated Diagnosis Comments LAB COLOGUARD?? COLON CANCER SCREEN Routine 03/13/2023 5:00 AM EDT Screening for colon cancer documented in this encounter Results * Cologuard?? colon cancer screening (03/13/2023 5:00 AM EDT) Cologuard Result Negative Negative 03/22/20 1:38 AM EDT [id number] (CLIA #:[id number]) Comment: NEGATIVE TEST RESULT. A negative Cologuard result indicates a low likelihood that a colorectal cancer (CRC) or advanced adenoma (adenomatous polyps with more advanced pre-malignant features) ??is present. The chance that a person with a negative Cologuard test has a colorectal cancer is less than 1 in 1500 (negative predictive value >99.9%) or has an ??advanced adenoma is less than ??5.3% (negative predictive value 94.7%). These data are based on a prospective cross-sectional study of 10,000 individuals at average risk for colorectal cancer who were screened with both Cologuard and colonoscopy. (Arnulfo Oliva. et al, N Engl J Med 2014;370(14):1286- 1297) The normal value (reference range) for this assay is negative. COLOGUARD RE-SCREENING RECOMMENDATION: Periodic colorectal cancer screening is an important part of preventive healthcare for asymptomatic individuals at average risk for colorectal cancer. ??Following a negative Cologuard result, the [place] [employer] and U.S. Multi-Society Task Force screening guidelines recommend a Cologuard re-screening interval of 3 years. References: [place] [employer] Guideline for Colorectal Cancer Screening: https://www.cancer.org/cancer/ygxyl-ggjlbm-qrtuow/udrglljui-ebhhkzqyb-zqcicjx/ac s-rec ommendations.html.; Slava TONEY, Tri MATTHEW, Beatriz CortezK, Colorectal Cancer Screening: Recommendations for Physicians and Patients from the U.S. Multi-Society Task Force on Colorectal Cancer Screening , Am J Gastroenterology 2017; 112:6315-3153. TEST DESCRIPTION: Composite algorithmic analysis of stool DNA-biomarkers with hemoglobin immunoassay. ?? Quantitative values of individual biomarkers are not reportable and are not associated with individual biomarker result reference ranges. Cologuard is intended for colorectal cancer screening of adults of either sex, 45 years or older, who are at average-risk for colorectal cancer (CRC). Cologuard has been approved for use by the U.S. FDA. The performance of Cologuard was established in a cross sectional study of average-risk adults aged 50-84. Cologuard performance in patients ages 45 to 49 years was estimated by sub-group analysis of near-age groups. Colonoscopies performed for a positive result may find as the most clinically significant lesion: colorectal cancer [4.0%], advanced adenoma (including sessile serrated polyps greater than or equal to 1cm diameter) [20%] or non- advanced adenoma [31%]; or no colorectal neoplasia [45%]. These estimates are derived from a prospective cross-sectional screening study of 10,000 individuals at average risk for colorectal cancer who were screened with both Cologuard and colonoscopy. (Arnulfo Oliva. et al, N Engl J Med 2014;370(14):8913-5598.) Cologuard may produce a false negative or false positive result (no colorectal cancer or precancerous polyp present at colonoscopy follow up). A negative Cologuard test result does not guarantee the absence of CRC or advanced adenoma (pre-cancer). The current Cologuard screening interval is every 3 years. ([place] [employer] and U.S. Multi-Society Task Force). Cologuard performance data in a 10,000 patient pivotal study using colonoscopy as the reference method can be accessed at the following location: www.[employer]/results. Additional description of the Cologuard test process, warnings and precautions can be found at www.[employer].com. Stool specimen (specimen) 03/13/2023 5:00 AM EDT 03/14/2023 7:43 PM EDT us Daljit Barrett MD LAB MOLECULAR DIAGNOSTICS O RDERABLES Final Result [id number] (CLIA #:[id number]) [address] [place], [place] [address] [phone] documented in this encounter Visit Diagnoses Diagnosis Screening for colon cancer Special screening for malignant neoplasms, colon documented in this encounter Care Teams Underwriting Technician Relationship Specialty Start Date End Date Daljit Barrett MD [address] [place] [id number] PCP - General Internal Medicine 09/09/16 documented as of this encounter
--- OUTSIDE RECORDS SUMMARY | 2024-10-11 10:55 | XMS_ITS | Encounter Summary ---
Author Organization [employer] Address [address] 7[address] [place] [address] Care Team Providers Care Avp Name Role Phone Daljit Barrett MD Primary Care Provider [phone] Reason for Visit * Reason Comments Cough Encounter Details Date Type Department Care Team ([facility] st Contact Info) Description 10/11/2024 9:20 AM EDT Office Visit [facility] [address] [place] [address] [phone] Leonard Llamas MD [address] [place] [phone] Type 2 diabetes mellitus without complication, without long-term current use of insulin ([facility]) (Primary Dx); Cough in adult patient Social History Tobacco Use Types Packs/Day Years [...] AM EDT documented as of this encounter Last Filed Vital Signs Vital Sign Reading Time Taken Comments Blood Pressure 116/74 10/11/2024 9:33 AM EDT Pulse 69 10/11/2024 9:33 AM EDT Temperature 36.7 ??C (98 ??F) 10/11/2024 9:33 AM EDT Respiratory Rate 18 10/11/2024 9:33 AM EDT Oxygen Saturation 99% 10/11/2024 9:33 AM EDT Inhaled Oxygen Concentration - - Weight 68.5 kg (151 lb) 10/11/2024 9:33 AM EDT Height - - Body Mass Index 25.13 03/14/2024 3:15 PM EDT documented in this encounter Progress Notes * Leonard Llamas MD - 10/11/2024 9:20 AM EDT Subjective History was provided by the patient. Leonard Katz is a 48 y.o. choose not to disclose who presents for evaluation of 4-months duration of cough. Also reports some congestion and rhinorrhea. Reports some post-tussive nausea. Denies F/C/V/D or night sweats. Reports weight loss of [address] Originally from [facility], came [place] the [place] in [place]. He believes previously tested negative for TB. Non-smoker. Lives with and kids. No sick contacts. Works in a company with [employer]. No previous history of environmental allergies. Denies acid reflux symptoms. No BRBPR or melena. Underlying HTN and T2 DM. 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 Objective Vitals: 10/11/24 0933 BP: 116/74 BP Location: Right arm Patient Position: Sitting BP Cuff Size: Adult Pulse: 69 Resp: 18 Temp: 98 ??F (36.7 ??C) TempSrc: Temporal SpO2: 99% Weight: 151 lb (68.5 kg) Physical Exam Vitals reviewed. Constitutional: General: Lenoard is not in acute distress. Appearance: Normal appearance. Leonard is normal weight. Leonard is not ill- appearing, toxic-appearing or diaphoretic. HENT: Head: Normocephalic and atraumatic. Right Ear: Tympanic membrane, ear canal and external ear normal. Left Ear: Tympanic membrane, ear canal and external ear normal. Nose: Nose normal. Mouth/Throat: Mouth: Mucous membranes are dry. Pharynx: Oropharynx is clear. Eyes: Extraocular Movements: Extraocular movements intact. Conjunctiva/sclera: Conjunctivae normal. Pupils: Pupils are equal, round, and reactive to light. Cardiovascular: Rate and Rhythm: Normal rate and regular rhythm. Heart sounds: Normal heart sounds. Pulmonary: Effort: Pulmonary effort is normal. No respiratory distress. Breath sounds: Normal breath sounds. No stridor. No wheezing, rhonchi or rales. Chest: Chest wall: No tenderness. Musculoskeletal: General: Normal range of motion. Cervical back: Normal range of motion and neck supple. Skin: General: Skin is warm and dry. Neurological: General: No focal deficit present. Mental Status: Leonard is alert and oriented to person, place, and time. Psychiatric: Mood and Affect: Mood normal. Behavior: Behavior normal. Office Visit on 10/11/2024 Component Date Value Ref Range Status Influenza A 10/11/2024 Negative Negative, Indeterminate Final Influenza B 10/11/2024 Negative Negative, Indeterminate Final Rapid COVID Ag 10/11/2024 Negative Final Leonard was seen today for cough. Diagnoses and all orders for this visit: Type 2 diabetes mellitus without complication, without long-term current use of insulin ([facility]) (Primary) - Hemoglobin A1c; Future Cough in adult patient - Influenza A (ID NOW Rapid Molecular) - Influenza B (ID NOW Rapid Molecular) - POCT Rapid COVID Ag - XR Chest 2 Views; Future - T-SPOT??.TB; Future - CBC auto differential; Future - Comprehensive Metabolic Panel; Future - benzonatate (Tessalon Perles) 100 MG capsule; Take 1 capsule (100 mg) by mouth if needed in the morning, at noon, and at bedtime for cough for up to 7 days. Do not crush or chew. Patient presents to [facility] due to 4-months duration of dry cough No hemoptysis, but reports 7 lbs weight loss Normal pulmonary exam and no respiratory distress O2 sat reassuring Rapid COVID-19 and Influenza A/B negative today Given duration of his symptoms, will check CXR Will check TB-Spot test and CBC/CMP Trial of Benzonatate prn for cough Also due for Hgb A1c Will schedule a follow-up appointment with PCP (message will be sent to the team nurse as no appt available at this time) Indications for UC/ER use reviewed Advised to contact the clinic if persistent or worsening symptoms documented in this encounter Plan of Treatment Upcoming Encounters Date Type Department Care Team (Late st Contact Info) Description 10/24/2024 11:15 AM EDT Office Visit [facility] [address] [place] [address] Daljit Barrett MD [address] [place] [address] Scheduled Orders Name Type Priority Associated Diagnoses Orde r Schedule XR Chest 2 Views Imaging Routine Cough in adult patient Expected: 10/11/2024, Expires: 10/11/2025 T-SPOT??.TB Lab Routine Cough in adult patient Expected: 10/11/2024 (Approximate), Expires: 10/11/2025 CBC auto differential Lab Routine Cough in adult patient Expected: 10/11/2024 (Approximate), Expires: 10/11/2025 Hemoglobin A1c Lab Routine Type 2 diabetes mellitus without complication, without long-term current use of insulin ([facility]) Expected: 10/11/2024 (Approximate), Expires: 10/11/2025 Comprehensive Metabolic Panel Lab Routine Cough in adult patient Expected: 10/11/2024 (Approximate), Expires: 10/11/2025 documented as of this encounter Procedures Procedure Name Priority Date/Time Associated Diagnosis Comments POCT INFLUENZA B (ID NOW RAPID MOLECULAR) Routine 10/11/2024 9:47 AM EDT Cough in adult patient POCT INFLUENZA A (ID NOW RAPID MOLECULAR) Routine 10/11/2024 9:47 AM EDT Cough in adult patient POCT RAPID COVID ANTIGEN Routine 10/11/2024 9:35 AM EDT Cough in adult patient documented in this encounter Results * Influenza B (ID NOW Rapid Molecular) (10/11/2024 9:47 AM EDT) Influenza B Negative Negative, Indeterminate [facility] Swab 10/11/2024 9:47 AM EDT Leonard Llamas MD POINT OF CARE TEST ENTER/EDIT OR DERABLES Final Result Performing Organization Address City/[facility]/ZIP Co de Phone Number [facility] [address] [place] [address] [phone] * Influenza A (ID NOW Rapid Molecular) (10/11/2024 9:47 AM EDT) Influenza A Negative Negative, Indeterminate [facility] Swab 10/11/2024 9:47 AM EDT Leonard Llamas MD POINT OF CARE TEST ENTER/EDIT OR DERABLES Final Result Performing Organization Address [facility] Co de Phone Number [facility] [address] [place] [address] [phone] * POCT Rapid COVID Ag (10/11/2024 9:35 AM EDT) Rapid COVID Ag Negative Swab 10/11/2024 9:35 AM EDT Leonard Llamas MD POINT OF CARE TEST ENTER/EDIT OR DERABLES Final Result documented in this encounter Visit Diagnoses Diagnosis Type 2 diabetes mellitus without complication, without long-term current use of insulin ([facility])- Primary Cough in adult patient documented in this encounter Care Teams Avp Relationship Specialty Start Date End Date Daljit Barrett MD [address] [place] [id number] PCP - General Internal Medicine 09/09/16 documented as of this encounter
--- OUTSIDE RECORDS SUMMARY | 2024-10-11 10:55 | XMS_ITS | Encounter Summary ---
Author Organization [employer] Address [address] [facility] 7t [place] [address] Care Team Providers Care Turret Punch Press Operator Name Role Phone Daljit Barrett MD Primary Care Provider [phone] Reason for Visit * Reason Comments Med Refill Encounter Details Date Type Department Care Team ([facility] Contact Info) Description 04/30/2024 Refill [facility] [address] [place] [address] Daljit Barrett MD [address] [place] [address] Complains of low back pain Social History Tobacco Use Types Packs/Day Years [...] Upcoming Encounters Date Type Department Care Team ([facility] Contact Info) Description 10/24/2024 11:15 AM EDT Office Visit [facility] [address] [place] [address] Daljit Barrett MD [address] [place] [address] documented as of this encounter Visit Diagnoses Diagnosis Complains of low back pain documented in this encounter Care Teams Turret Punch Press Operator Relationship Specialty Start Date End Date Daljit Barrett MD [address] [place] [id number] PCP - General Internal Medicine 09/09/16 documented as of this encounter
--- OUTSIDE RECORDS SUMMARY | 2024-10-11 10:55 | XMS_ITS | Encounter Summary ---
Author Organization [employer] Address [address] [facility] 7t [place] [address] Care Team Providers Care Volunteer Fire Fighter Name Role Phone Daljit Barrett MD Primary Care Provider [phone] Encounter Details Date Type Department Care Team ([facility] Contact Info) Description 03/20/[address] [facility] [address] [place], [place] [phone] Daljit Barrett MD [address] [place], [place] [phone] Type 2 diabetes mellitus without complication, without long-term current use of insulin ([facility]) (Primary Dx) Social History Tobacco Use Types [...] Upcoming Encounters Date Type Department Care Team ([facility] Contact Info) Description 10/24/2024 11:15 AM EDT Office Visit [facility] [address] [place], [place] [phone] Daljit Barrett MD [address] [place], [place] [phone] documented as of this encounter Visit Diagnoses Diagnosis Type 2 diabetes mellitus without complication, without long-term current use of insulin ([facility])- Primary documented in this encounter Care Teams Volunteer Fire Fighter Relationship Specialty Start Date End Date Daljit Barrett MD [address] [place] [id number] PCP - General Internal Medicine 09/09/16 documented as of this encounter
--- OUTSIDE RECORDS SUMMARY | 2024-10-11 10:55 | XMS_ITS | Encounter Summary ---
Author Organization [employer] Address [address] [facility] 7t [place] [address] Care Team Providers Care Director Pharmacy Services Name Role Phone Daljit Barrett MD Primary Care Provider [phone] Encounter Details Date Type Department Care Team ([facility] Contact Info) Description 01/31/2023 Orders Only [facility] [address] [place], [place] [phone] Daljit Barrett MD [address] [place], [place] [phone] Type 2 diabetes mellitus without complication, without long-term current use of insulin ([facility]) (Primary Dx) Social History Tobacco Use [...] Upcoming Encounters Date Type Department Care Team ([facility] Contact Info) Description 10/24/2024 11:15 AM EDT Office Visit [facility] [address] [place], [place] [phone] Daljit Barrett MD [address] [place], [place] [phone] documented as of this encounter Visit Diagnoses Diagnosis Type 2 diabetes mellitus without complication, without long-term current use of insulin ([facility])- Primary documented in this encounter Care Teams Director Pharmacy Services Relationship Specialty Start Date End Date Daljit Barrett MD [address] [place] [phone] PCP - General Internal Medicine 09/09/16 documented as of this encounter
--- OUTSIDE RECORDS SUMMARY | 2024-10-11 10:55 | XMS_ITS | Clinical Summary ---
Author Organization [employer] Address [address] [facility] [address] [place] [address] Care Team Providers Care Noc Engineer Name Role Phone Daljit Barrett MD Primary Care Provider [phone] Allergies No known active allergies Medications FREESTYLE LITE test strip CHECK BLOOD SUGAR 3 TIMES A DAY 03/16/20 22 Active glucose blood (FREESTYLE LITE) test stripIndications :Type 2 diabetes mellitus without complication, without long-term current use of insulin ([facility]) CHECK BLOOD SUGAR 3 TIMES A DAY 100 strip 11 04/06/20 23 Active FreeStyle lancetsIndicatio ns:Type 2 diabetes mellitus without complication, without long-term current use of insulin ([facility]) USE TO TEST BLOOD SUGAR TWICE DAILY 100 each 11 11/20/19 24 Active empagliflozin (Jardiance) 25 MGIndications:Ty pe 2 diabetes mellitus without complication, without long-term current use of insulin ([facility]) Take 1 tablet (25 mg) by mouth Once per day. 30 tablet 11 01/19/20 24 025 Active ibuprofen 800 MG tabletIndication s:Complains of low back pain TAKE 1 TABLET BY MOUTH EVERY DAY WITH FOOD NEEDED 30 tablet 3 08/15/19 25 Active metFORMIN XR (Glucophage-XR) 500 MG 24 hr tabletIndication s:Type 2 diabetes mellitus without complication, without long-term current use of insulin ([facility]) Take 2 tablets (1,000 mg) by mouth with evening meal. Do not crush, chew, or split. 60 tablet 11 08/15/19 25 026 Active metFORMIN, OSM, (Fortamet) 500 MG 24 hr tabletIndication s:Type 2 diabetes mellitus without complication, without long-term current use of insulin (CMS/HCC) Do not crush, chew, or split. Take 2 tabs once a day 60 tablet 09/18/19 25 Active atorvastatin (Lipitor) 40 MG tabletIndication s:Hypercholester olemia Take 1 tablet (40 mg) by mouth Once per day. 30 tablet 09/18/19 25 Active lisinopril 10 MG tabletIndication s:Primary hypertension Take 1 tablet (10 mg) by mouth Once per day. 30 tablet 09/18/19 25 026 Active benzonatate (Tessalon Perles) 100 MG capsuleIndicatio ns:Cough in adult patient Take 1 capsule (100 mg) by mouth if needed in the morning, at noon, and at bedtime for cough for up to 7 days. Do not crush or chew. 20 capsule 10/12/19 25 025 Active metFORMIN, OSM, (Fortamet) 500 MG 24 hr tabletIndication s:Type 2 diabetes mellitus without complication, without long-term current use of insulin (CMS/HCC) Do not crush, chew, or split. Take 2 tabs once a day 60 tablet 07/09/19 25 025 Discontinued(Re order (will not trigger notification to Pharmacy)) lisinopril 10 MG tabletIndication s:Primary hypertension Take 1 tablet (10 mg) by mouth Once per day. 30 tablet 08/15/19 25 025 Discontinued(Re order (will not trigger notification to Pharmacy)) atorvastatin (Lipitor) 40 MG tabletIndication s:Hypercholester olemia Take 1 tablet (40 mg) by mouth Once per day. 30 tablet 11 08/15/19 25 025 Discontinued(Re order (will not trigger notification to Pharmacy)) Active Problems Problem Noted Date Diagnosed Date Primary hypertension 03/14/2024 Complains of low back pain 12/22/2020 Hypercholesterolemia 01/10/2018 Type 2 diabetes mellitus 01/10/2018 Encounters Date Type Department Care Team Description 10/11/2024 9:20 AM EDT Office Visit [facility] [address] [address] Leonard Llamas MD Type 2 diabetes mellitus without complication, without long-term current use of insulin ([facility]) (Primary Dx); Cough in adult patient 10/11/2024 Travel 09/17/2024 Refill [facility] [address] [place] [address] Daljit Barrett MD Type 2 diabetes mellitus without complication, without long-term current use of insulin (CMS/HCC); Hypercholesterolemia; Primary hypertension 09/13/2024 Telephone [facility] [address] [place] [address] Daljit Barrett MD triage 08/14/2024 Refill [facility] [address] [place] [address] Daljit Barrett MD Primary hypertension; Complains of low back pain; Type 2 diabetes mellitus without complication, without long-term current use of insulin ([facility]); Hypercholesterolemia 08/13/2024 Telephone [facility] [address] [place] [address] Daljit Barrett MD Med Refill from Last 3 Months Immunizations Name Administration Dates Next Due Pneumococcal Conjugate PCV 20 01/19/2024 Social History Tobacco Use Types Packs/Day Years Used Date Smoking Tobacco: Never Smokeless Tobacco: Never Tobacco Cessation:Counseling Given: Not Answered Alcohol Use Standard Drinks/Week Comments Never 0 [...] not to disclose 2021 10:31 AM EDT Last Filed Vital Signs Vital Sign Reading Time Taken Comments Blood Pressure 116/74 10/11/2024 9:33 AM EDT Pulse 69 10/11/2024 9:33 AM EDT Temperature 36.7 ??C (98 ??F) 10/11/2024 9:33 AM EDT Respiratory Rate 18 10/11/2024 9:33 AM EDT Oxygen Saturation 99% 10/11/2024 9:33 AM EDT Inhaled Oxygen Concentration - - Weight 68.5 kg (151 lb) 10/11/2024 9:33 AM EDT Height 165.1 cm (5' 5 ) 03/14/2024 3:15 PM EDT Body Mass Index 25.13 03/14/2024 3:15 PM EDT Plan of Treatment Upcoming Encounters Date Type Department Care Team (Late st Contact Info) Description 10/24/2024 11:15 AM EDT Office Visit [facility] [address] [place] [address] Daljit Barrett MD [address] [place] [address] Health Maintenance Due Date Last Done Comments CT Colonography 1977 Colonoscopy 1977 FIT 1977 FOBT 1977 HIV Screening 1977 SDOH Screening 1977 Sigmoidoscopy 1977 Eye Exam 11/04/1987 Alcohol/Substance Use Screening 1989 Family Planning (PISQ) 1992 Hepatitis C Screening 11/04/1995 Hepatitis B Vaccines (1 of 3 - 19+ 3-dose series) 1996 Depression Screening 06/14/2023 06/14/2022, 06/14/19 23 COVID-19 Vaccine ( season) 2024 Influenza Vaccine (#1) 2024 9, 04/11/2018, 05/05/2017 Diabetes: Hemoglobin A1C 04/20/2024 024, 04/26/2023, 12/21/2022, Additional history exists Diabetes: Foot Exam 04/26/2024 04/26/2023, 04/26/2023, 04/26/2023, Additional history exists Diabetes: Urine Protein Screening 01/21/2025 01/22/2024, 08/25/2020, 05/24/2019 Lipid Panel 01/21/2025 01/22/2024, 04/06, 09/20/2022, Additional history exists Tobacco Screening 03/14/2025 03/14/2024 Colorectal Cancer Screening 03/13/2026 FIT DNA/Cologuard 03/13/2026 03/13/2023 DTaP/Tdap/Td Vaccines (2 - Td or Tdap) 05/05/2027 05/05/2017, 10/09/2015 Zoster Vaccines (1 of 2) 11/04/2027 RSV Patients and Patients Aged 60 years or older (1 - 1-dose 75+ series) 2052 Pneumococcal Vaccine: Pediatrics (0 to 5 Years) and At-Risk Patients (6 to 49) Years) Completed 01/19/2024, 04/11/2018 HIB Vaccines Aged Out No longer eligi ble based on patient's age to complete this topic HPV Vaccines Aged Out No longer eligi ble based on patient's age to complete this topic Hepatitis A Vaccines Aged Out No long er eligible based on patient's age to complete this topic IPV Vaccines Aged Out No longer eligi ble based on patient's age to complete this topic Meningococcal Vaccine Aged Out No gunnar phil eligible based on patient's age to complete this topic RSV under 20 months Aged Out No longe r eligible based on patient's age to complete this topic Rotavirus Vaccines Aged Out No longer eligible based on patient's age to complete this topic Procedures Procedure Name Priority Date/Time Associated Diagnosis Comments POCT INFLUENZA B (ID NOW RAPID MOLECULAR) Routine 10/11/2024 9:47 AM EDT Cough in adult patient POCT INFLUENZA A (ID NOW RAPID MOLECULAR) Routine 10/11/2024 9:47 AM EDT Cough in adult patient POCT RAPID COVID ANTIGEN Routine 10/11/2024 9:35 AM EDT Cough in adult patient ALBUMIN, RANDOM URINE W/CREATININE Routine 01/22/2024 8:50 AM EDT Type 2 diabetes mellitus without complication, without long-term current use of insulin ([facility]) LIPID PANEL, STANDARD Routine 01/22/2024 8:43 AM EDT Type 2 diabetes mellitus without complication, without long-term current use of insulin ([facility]) Hypercholesterolemi a POCT GLYCATED HEMOGLOBIN, TOTAL Routine 01/19/2024 4:30 PM EDT Type 2 diabetes mellitus without complication, without long-term current use of insulin ([facility]) LAB COLOGUARD?? COLON CANCER SCREEN Routine 03/13/2023 5:00 AM EDT Screening for colon cancer from Last 3 Months or Most Recently Relevant to Health Maintenance Results * Influenza B (ID NOW Rapid Molecular) (10/11/2024 9:47 AM EDT) [facility] Influenza B Negative Negative, Indeterminate [facility] Swab 10/11/2024 9:47 AM EDT us Leonard Llamas MD POINT OF CARE TEST ENTER/EDIT OR DERABLES Final Result Performing Organization Address [facility]/ZIP Co de Phone Number [facility] [address] [place] [phone] * Influenza A (ID NOW Rapid Molecular) (10/11/2024 9:47 AM EDT) [facility] Influenza A Negative Negative, Indeterminate [facility] Swab 10/11/2024 9:47 AM EDT us Leonard Llamas MD POINT OF CARE TEST ENTER/EDIT OR DERABLES Final Result Performing Organization Address [facility] Co de Phone Number [facility] [address] [place] [phone] * POCT Rapid COVID Ag (10/11/2024 9:35 AM EDT) [facility] Rapid COVID Ag Negative Swab 10/11/2024 9:35 AM EDT us Leonard Llamas MD POINT OF CARE TEST ENTER/EDIT OR DERABLES Final Result * (ABNORMAL) Albumin, Random Urine W/Creatinine (01/22/2024 8:50 AM EDT) Creatinine, Urine 521.58 mg/dL [facility] Microalbumin Urine 476.0 mg/L [facility] Microalbum Creatinine Ratio Ur 91.2(H) <30 ug/mg cr [facility] Comment:Albumin/Creatinine R atio Reference Ranges: Normal: < 30 ug/mg creatinine Microalbuminuria: 30 - 300 ug/mg creatinineClinical Albuminuria: > 300 ug/mg creatinine Urine (Urine, Random) 01/22/2024 8:50 AM EDT 01/22/2024 2:10 PM EDT us Daljit Barrett MD LAB URINE ORDERABLES Final Result [facility] [address] [place] [phone] * Lipid Panel, Standard (01/22/2024 8:43 AM EDT) Triglycerides 120 <150 mg/dL [facility] Comment:Desirable Triglyceri de: less than 150 mg/dLBorderline High Triglyceride 150-199 mg/dLHigh Triglyceride: 200-499 mg/dLVery High Triglyceride: greater than or equal to 5OO mg/dL Cholesterol 153 <200 mg/dL [facility] Comment:Desirable Cholestero l: less than 200 mg/dLBorderline High Cholesterol: 200-239 mg/dLHigh Cholesterol: greater than 239 mg/dL LDL Cholesterol Calculated 77 <100 mg/dL [facility] Comment:Desirable LDL: less than 100 mg/dLNear Optimal/Above Optimal LDL: 110- 129 mg/dLBorderline High LDL: 130-159 mg/dLHigh LDL: 160-189 mg/dLVery High LDL: greater than or equal to 190 mg/dL HDL Cholesterol 52 >40 mg/dL [facility] Comment:Desirable HDL: great er than 40 mg/dL Note: This HDL assay may give artificially low results in patients with liver disease. Blood Venous blood specimen / Unknown 01/22/2024 8:43 AM EDT 01/22/2024 2:19 PM EDT us Daljit Barrett MD LAB BLOOD ORDERABLES Final Result [facility] [address] [place] [phone] [phone] * (ABNORMAL) POCT HGB A1C (01/19/2024 4:30 PM EDT) Hemoglobin A1C 8.0(A) 4.0 - 6.0 % QC Media Lot # [id number] Lot# Expiration Date ,[id number] Blood 01/19/2024 4:30 PM EDT us Daljit Barrett MD POINT OF CARE TEST ENTER/ED IT ORDERABLES Final Result * Cologuard?? colon cancer screening (03/13/2023 5:00 AM EDT) Cologuard Result Negative Negative 03/22/20 1:38 AM EDT [facility] (CLIA #:[id number]) Comment: NEGATIVE TEST RESULT. A negative Cologuard [...] screened with both Cologuard and colonoscopy. (Arnulfo Zaman al, N Engl J Med 2014;370(14):1286- 1297) The normal value (reference range) for this assay is negative. COLOGUARD RE-SCREENING RECOMMENDATION: Periodic colorectal cancer screening is an important part of preventive healthcare for asymptomatic individuals at average risk for colorectal cancer. ??Following a negative Cologuard result, the [place] [employer] and U.S. Multi-Society Task Force screening guidelines recommend a Cologuard re-screening interval of 3 years. References: [place] [employer] Guideline for Colorectal Cancer Screening: https://www.cancer.org/cancer/rpmge-tqdhtf-qtmczq/uvhziukpn-ruooozdea-ymqieqe/ac s-rec ommendations.html.; Slava DK, Tri CR, Beatriz CortezK, Colorectal Cancer Screening: Recommendations for Physicians and Patients from the U.S. Multi-Society Task Force on Colorectal Cancer Screening , Am J Gastroenterology 2017; 112:2029-3794. TEST DESCRIPTION: Composite algorithmic analysis of stool [...] screened with both Cologuard and colonoscopy. (Arnulfo Zaman al, N Engl J Med 2014;370(14):1329-4529.) Cologuard may produce a false negative or false positive result (no colorectal cancer or precancerous polyp present at colonoscopy follow up). A negative Cologuard test result does not guarantee the absence of CRC or advanced adenoma (pre-cancer). The current Cologuard screening interval is every 3 years. ([place] [employer] and U.S. Multi-Society Task Force). Cologuard performance data in a 10,000 patient pivotal study using colonoscopy as the reference method can be accessed at the following location: www.[employer].com/results. Additional description of the Cologuard test process, warnings and precautions can be found at www.colSkin Analyticsrd.com. Stool specimen (specimen) 03/13/2023 5:00 AM EDT 03/14/2023 7:43 PM EDT Daljit Barrett MD LAB MOLECULAR DIAGNOSTICS O RDERABLES Final Result [facility] (CLIA #:[id number]) [address] [place] [address], from Last 3 Months or Most Recently Relevant to Health Maintenance Insurance , [address] [place] [phone] Care Teams Noc Engineer Relationship Specialty Start Date End Date Daljit Barrett MD [address] [place] [phone] PCP - General Internal Medicine 09/09/16
--- OUTSIDE RECORDS SUMMARY | 2024-10-11 10:55 | XMS_ITS | Encounter Summary ---
Author Organization [employer] Address [address] [facility] [address] [place] [address] Care Team Providers Care Truck Cleaner Name Role Phone Daljit Barrett MD Primary Care Provider [phone] Encounter Details Date Type Department Care Team (Latest Contact Info) Description 10/11/2024 Travel Social History Tobacco Use Types Packs/Day Years [...] Description 10/24/2024 11:15 AM EDT Office Visit [facility] [address] [place] [address] Daljit Barrett MD [address] [place] [address] documented as of this encounter Visit Diagnoses Not on filedocumented in this encounter Care Teams Truck Cleaner Relationship Specialty Start Date End Date Daljit Barrett MD [address] [place] [address] PCP - General Internal Medicine 09/09/16 documented as of this encounter
== END 2024-10-11 10:24 | disposition home or self-care (01) ==
LOC: HO.HHCX 10:23
PROVIDERS: Visit Provider Family Medicine
DX: R05.9 Cough, unspecified (principal)
CPT/HCPCS: 71046

== ENCOUNTER → 2024-10-11 10:25 | Outpatient (BNV) | payer MEDICAID, SELFPAY | PROVIDERS: Visit Provider Radiology Diagnostic Radiology | DX: R05.9 Cough, unspecified (principal) | CPT/HCPCS: 71046 ==

== ENCOUNTER 2024-10-11 11:07 | Outpatient (REF) | payer OTHER, SELFPAY ==
--- OUTSIDE RECORDS SUMMARY | 2024-10-11 11:38 | XMS_ITS | Clinical Summary ---
Author Organization [employer] Address [address] [facility] 7t [place] [address] Care Team Providers Care Application Assistant Name Role Phone Daljit Barrett MD Primary Care Provider [phone] Allergies No known active allergies Medications FREESTYLE LITE test strip CHECK BLOOD SUGAR 3 TIMES A DAY 03/16/20 22 Active glucose blood (FREESTYLE LITE) test stripIndications :Type 2 diabetes mellitus without complication, without long-term current use of insulin ([facility]) CHECK BLOOD SUGAR 3 TIMES A DAY 100 strip 11 04/06/20 23 Active FreeStyle lancetsIndicatio ns:Type 2 diabetes mellitus without complication, without long-term current use of insulin ([facility]) USE TO TEST BLOOD SUGAR TWICE DAILY 100 each 11 11/20/19 24 Active empagliflozin (Jardiance) 25 MGIndications:Ty pe 2 diabetes mellitus without complication, without long-term current use of insulin ([facility]) Take 1 tablet (25 mg) [...] complication, without long-term current use of insulin ([facility]) Take 2 tablets (1,000 mg) [...] Description 10/11/2024 9:20 AM EDT Office Visit [facility] [address] [address] Leonard Llamas MD Type 2 diabetes mellitus without complication, without long-term current use of insulin (CMS/[facility]) (Primary Dx); Cough in adult patient 10/11/2024 Telephone [facility] [address] [place] [address] Leonard Llamas MD 10/11/2024 Travel 09/17/2024 Refill [facility] [address] [place] [address] Daljit Barrett MD Type 2 diabetes mellitus without complication, without long-term current use of insulin (CMS/HCC); Hypercholesterolemia; Primary hypertension 09/13/2024 Telephone [facility] [address] [place] [address] Daljit Barrett MD triage 08/14/2024 Refill [facility] [address] [place] [address] Daljit Barrett MD Primary hypertension; Complains of low back pain; Type 2 diabetes mellitus without complication, without long-term current use of insulin (CMS/HCC); Hypercholesterolemia 08/13/2024 Telephone [facility] [address] [place] [address] Daljit Barrett MD Med Refill from Last [...] Description 10/24/2024 11:15 AM EDT Office Visit [facility] [address] [place], [place] [phone] Daljit Barrett MD [address] [place] [address] Health Maintenance Due Date Last Done Comments [...] 01/22/2024, 08/25/2020, 05/24/2019 Lipid Panel 01/21/2025 01/22/2024, 1107/2022, 09/20/2022, Additional history exists Tobacco Screening 03/14/2025 [...] Procedure Name Priority Date/Time Associated Diagnosis Comments XR CHEST 2 VIEWS Routine 10/11/2024 10:2 5 AM EDT Cough in adult patient POCT INFLUENZA B (ID NOW RAPID MOLECULAR) [...] without long-term current use of insulin (CMS/HCC) LIPID PANEL, STANDARD Routine 01/22/2024 8:43 AM EDT Type 2 diabetes mellitus without complication, without long-term current use of insulin (CMS/HCC) Hypercholesterolemi a POCT GLYCATED HEMOGLOBIN, TOTAL Routine 01/19/2024 4:30 PM EDT Type 2 diabetes mellitus without complication, without long-term current use of insulin (CMS/HCC) LAB COLOGUARD?? COLON CANCER SCREEN Routine 03/13/2023 5:00 AM EDT Screening for colon cancer from Last 3 Months or Most Recently Relevant to Health Maintenance Results * XR Chest 2 Views (10/11/2024 10:25 AM EDT) Anatomical Region Laterality Modality Chest Radiographic Micaela ging 10/11/2024 10:2 5 AM EDT Narrative 10/11/2024 10:56 AM EDT ?[facility] ?[address] ?[place] [address] ?XRay Report ? Signed ? Patient: Leonard Leonardo ?MR#: [id number] ?? 39 ? : 1975 ?Acct:[id number] ? Age/Sex: 48 / M ?ADM Date: 10/11/24 ? Loc: HO.HHCX ? Attending Dr: Leonard Llamas MD ? Ordering Physician: Leonard Llamas MD ?? Date of Service: 10/11/24 ?? Procedure(s): XR chest 2V ?? Accession Number(s): [id number] ? cc: Leonard Llamas MD ? EXAMINATION: ?? XR CHEST ? CLINICAL INFORMATION: ?? COUGH ? COMPARISON: ?? October 08, 2020 ? TECHNIQUE: ?? 2 views of the chest were obtained. ? FINDINGS: ?? No consolidation, pleural fissure pneumothorax. No hyperinflation. ?? Cardiomediastinal silhouette size is normal. Probable calcified plaque ?? aortic arch. ?? Osseous structures are intact. ? XR/XR chest 2V ?? IMPRESSION: ?? No acute airspace disease. ? Electronically signed by: ??Daniel Eller MD ??10/11/2024 10:53 AM ?? EDT RP ? Dictated By: ?Daniel Zaidi MD ? Signed By: ?<Electronically signed by Daniel Vaughan MD in OV> ? 10/11/24 1053 ? DD/ 1025 ? TD/TT: 10/11/24 1030 ? Settlement Agent: ? Procedure Note Donmileter, Image - 10/11/2024 [facility] [address] [place] [address] XRay Report Signed Patient: Leonard Leonardo MMR#: [id number] 39 : 1975Acct:[id number] Age/Sex: 48 / MADM Date: 10/11/24 Loc: HO.HHCX Attending Dr: Leonard Llamas MD Ordering Physician: Leonard Llamas MD Date of Service: 10/11/24 Procedure(s): XR chest 2V Accession Number(s): [id number] cc: Leonard Llamas MD EXAMINATION: XR CHEST CLINICAL INFORMATION: COUGH COMPARISON: October 08, 2020 TECHNIQUE: 2 views of the chest were obtained. FINDINGS: No consolidation, pleural fissure pneumothorax. No hyperinflation. Cardiomediastinal silhouette size is normal. Probable calcified plaque aortic arch. Osseous structures are intact. XR/XR chest 2V IMPRESSION: No acute airspace disease. Electronically signed by: Daniel Eller MD 10/11/2024 10:53 AM EDT Dictated By: Daniel Zaidi MD Signed By: <Electronically signed by Daniel Vaughan MDin OV> 10/11/24 1053 DD/ 1025 TD/TT: 10/11/24 1030 Settlement Agent: eLonard Llamas MD IMG XR PROCEDURES Final Result * Influenza B (ID NOW Rapid Molecular) (10/11/2024 9:47 AM EDT) Influenza B Negative Negative, Indeterminate [facility] Swab 10/11/2024 9:47 AM EDT us Leonard Llamas MD POINT OF CARE TEST ENTER/EDIT OR DERABLES Final Result [facility] [address] [place] [address] [phone] * Influenza A (ID NOW Rapid Molecular) (10/11/2024 9:47 AM EDT) Influenza A Negative Negative, Indeterminate [facility] Swab 10/11/2024 9:47 AM EDT us Leonard Llamas MD POINT OF CARE TEST ENTER/EDIT OR DERABLES Final Result Performing Organization Address [facility] Co de Phone Number [facility] [address] [place] [phone] * POCT Rapid COVID Ag (10/11/2024 9:35 AM EDT) Pathologist [facility] Rapid COVID Ag Negative Swab 10/11/2024 9:35 AM EDT us Leonard Llamas MD POINT OF CARE TEST ENTER/EDIT OR DERABLES Final Result * (ABNORMAL) Albumin, Random Urine W/Creatinine (01/22/2024 8:50 AM EDT) Creatinine, Urine 521.58 mg/dL [facility] Microalbumin Urine 476.0 mg/L [facility] Microalbum Creatinine Ratio Ur 91.2(H) <30 ug/mg cr [facility] Comment:Albumin/Creatinine R at Reference Ranges: Normal: < 30 ug/mg creatinine Microalbuminuria: 30 - 300 ug/mg creatinineClinical Albuminuria: > 300 ug/mg creatinine Urine (Urine, Random) 01/22/2024 8:50 AM EDT 01/22/2024 2:10 PM EDT us Daljit Barrett MD LAB URINE ORDERABLES Final Result Performing Organization Address [facility] Co de Phone Number [facility] [address] [place] [address] [phone] * Lipid Panel, Standard (01/22/2024 8:43 AM EDT) Triglycerides 120 <150 mg/dL [facility] Comment:Desirable Triglyceri de: less than 150 mg/dLBorderline High Triglyceride 150-199 mg/dLHigh Triglyceride: 200-499 mg/dLVery High Triglyceride: greater than or equal to 5OO mg/dL Cholesterol 153 <200 mg/dL [facility] Comment:Desirable Cholestero l: less than 200 mg/dLBorderline High Cholesterol: 200-239 mg/dLHigh Cholesterol: greater than 239 mg/dL LDL Cholesterol Calculated 77 <100 mg/dL [facility] Comment:Desirable LDL: less than 100 mg/dLNear Optimal/Above Optimal LDL: 110- 129 mg/dLBorderline High LDL: 130-159 mg/dLHigh LDL: 160-189 mg/dLVery High LDL: greater than or equal to 190 mg/dL HDL Cholesterol 52 >40 mg/dL [facility] Comment:Desirable HDL: great er than 40 mg/dL Note: This HDL assay may give artificially low results in patients with liver disease. Blood Venous blood specimen / Unknown 01/22/2024 8:43 AM EDT 01/22/2024 2:19 PM EDT us Daljit Barrett MD LAB BLOOD ORDERABLES Final Result Performing Organization Address [facility]/ZIP Co de Phone Number [facility] [address] [place] [address] [phone] * (ABNORMAL) POCT HGB A1C (01/19/2024 4:30 PM EDT) Hemoglobin A1C 8.0(A) 4.0 - 6.0 % QC Media Lot # [id number] Lot# Expiration Date [id number] Blood 01/19/2024 4:30 PM EDT us Daljit Barrett MD POINT OF CARE TEST ENTER/ED IT ORDERABLES Final Result * Cologuard?? colon cancer screening (03/13/2023 5:00 AM EDT) Cologuard Result Negative Negative 03/22/20 1:38 AM EDT [employer] (CLIA #:[id number]) Comment: NEGATIVE TEST RESULT. A negative Cologuard [...] cancer. ??Following a negative Cologuard result, the [place] [employer] Society and U.S. Multi-Society Task Force screening guidelines recommend a Cologuard re-screening interval of 3 years. References: [place] [employer] Guideline for Colorectal Cancer Screening: https://www.cancer.org/cancer/wqulu-cuvwde-fijcyt/lwkfyrqvl-glykllfwy-higgknp/ac s-rec ommendations.html.; Slava TONEY, Tri MATTHEW, Beatriz CortezK, Colorectal Cancer Screening: Recommendations for Physicians and Patients from the U.S. Multi-Society Task Force on Colorectal Cancer Screening , Am J Gastroenterology 2017; 112:0971-2855. TEST DESCRIPTION: Composite algorithmic analysis of stool [...] Oliva. et al, N Engl J Med 2014;370(14):7395-7683.) Cologuard may produce a false negative or false positive result (no colorectal cancer or precancerous polyp present at colonoscopy follow up). A negative Cologuard test result does not guarantee the absence of CRC or advanced adenoma (pre-cancer). The current Cologuard screening interval is every 3 years. ([place] [employer] and U.S. Multi-Society Task Force). Cologuard performance data in a 10,000 patient pivotal study using colonoscopy as the reference method can be accessed at the following location: www.Buzzni/results. Additional description of the Cologuard test process, warnings and precautions can be found at www.RapleafogOutTrippinrd.com. Stool specimen (specimen) 03/13/2023 5:00 AM EDT 03/14/2023 7:43 PM EDT us Daljit Barrett MD LAB MOLECULAR DIAGNOSTICS O RDERABLES Final Result [employer] (CLIA #:[id number]) [place] [address], [place] [phone] from Last 3 Months or Most Recently Relevant to Health Maintenance Insurance , [address] [address] Care Teams Application Assistant Relationship Specialty Start Date End Date Daljit Barrett MD [address] [place] [phone] PCP - General Internal Medicine 09/09/16
--- OUTSIDE RECORDS SUMMARY | 2024-10-11 11:38 | XMS_ITS | Encounter Summary ---
Author Organization [employer] Address [address] [facility] 7t [place] [address] Care Team Providers Care Dish Washer Name Role Phone Daljit Barrett MD Primary Care Provider [phone] Encounter Details Date Type Department Care Team ([facility] Contact Info) Description 12/23/2022 Orders Only [facility] [address] [place], [place] [phone] Daljit Barrett MD [address] [place], [place] [phone] Type 2 diabetes mellitus without complication, without long-term current use of insulin ([facility]) (Primary Dx) Social History Tobacco Use Types [...] Upcoming Encounters Date Type Department Care Team ([facility] Contact Info) Description 10/24/2024 11:15 AM EDT Office Visit [facility] [address] [place], [place] [phone] Daljit Barrett MD [address] [place], [place] [phone] documented as of this encounter Visit Diagnoses Diagnosis Type 2 diabetes mellitus without complication, without long-term current use of insulin ([facility])- Primary documented in this encounter Care Teams Dish Washer Relationship Specialty Start Date End Date Daljit Barrett MD [address] [place] [address] PCP - General Internal Medicine 09/09/16 documented as of this encounter
--- OUTSIDE RECORDS SUMMARY | 2024-10-11 11:38 | XMS_ITS | Encounter Summary ---
Author Organization [employer] Address [address] [facility] 7t [place] [address] Care Team Providers Care Manager Of Case Name Role Phone Daljit Barrett MD Primary Care Provider [phone] Reason for Visit * Reason Comments Med Refill Encounter Details Date Type Department Care Team ([facility] Contact Info) Description 04/30/2024 Refill [facility] [address] [place] [address] Daljit Barrett MD [address] [place] [address] Complains of low back pain Social History [...] Upcoming Encounters Date Type Department Care Team ([facility] Contact Info) Description 10/24/2024 11:15 AM EDT Office Visit [facility] [address] [place] [address] Daljit Barrett MD [address] [place] [address] documented as of this encounter Visit Diagnoses Diagnosis Complains of low back pain documented in this encounter Care Teams Manager Of Case Relationship Specialty Start Date End Date Daljit Barrett MD [address] [place] [phone] PCP - General Internal Medicine 09/09/16 documented as of this encounter
--- OUTSIDE RECORDS SUMMARY | 2024-10-11 11:38 | XMS_ITS | Encounter Summary ---
Author Organization [employer] Address [address] [facility] [address] [place] [address] Care Team Providers Care Law Firm Partner Name Role Phone Daljit Barrett MD Primary Care Provider [phone] Encounter Details Date Type Department Care Team [...] Description 10/24/2024 11:15 AM EDT Office Visit [facility] [address] [place] [address] Daljit Barrett MD [address] [place] [address] documented as of this encounter Visit Diagnoses Not on filedocumented in this encounter Care Teams Law Firm Partner Relationship Specialty Start Date End Date Daljit Barrett MD [address] [place] [address] PCP - General Internal Medicine 09/09/16 documented as of this encounter
--- OUTSIDE RECORDS SUMMARY | 2024-10-11 11:38 | XMS_ITS | Encounter Summary ---
Author Organization [employer] Address 75 [facility] 7t [place] [address] Care Team Providers Care Storm Chaser Name Role Phone Daljit Barrett MD Primary Care Provider [phone] Encounter Details Date Type Department Care Team ([facility] Contact Info) Description 03/20/2024 Orders Only [facility] [address] [place], [place] [phone] Daljit Barrett MD [address] [place], [place] [phone] Type 2 diabetes mellitus without complication, without long-term current use of insulin ([facility]) (Primary Dx) Social History Tobacco Use [...] Upcoming Encounters Date Type Department Care Team ([facility] Contact Info) Description 10/24/2024 11:15 AM EDT Office Visit [facility] [address] [place], [place] [phone] Daljit Barrett MD [address] [place], [place] [phone] documented as of this encounter Visit Diagnoses Diagnosis Type 2 diabetes mellitus without complication, without long-term current use of insulin ([facility])- Primary documented in this encounter Care Teams Storm Chaser Relationship Specialty Start Date End Date Daljit Barrett MD [address] [place] [address] PCP - General Internal Medicine 09/09/16 documented as of this encounter
--- OUTSIDE RECORDS SUMMARY | 2024-10-11 11:38 | XMS_ITS | Encounter Summary ---
Author Organization [employer] Address [address] [facility] [address] 7t [place] [address] Care Team Providers Care Plant Controls Specialist Name Role Phone Daljit Barrett MD Primary Care Provider [phone] Reason for Visit * Reason Comments Cough Encounter Details Date Type Department Care Team ([facility] st Contact Info) Description 10/11/2024 9:20 AM EDT Office Visit [facility] [address] [place] [phone] Leonard Llamas MD [address] [place] [phone] Type 2 diabetes mellitus without complication, without long-term current use of insulin ([facility]) (Primary Dx); Cough in [...] weight loss of 7 lbs. Originally from [place], came [place] in [place]. He believes previously tested negative for TB. Non-smoker. Lives with and kids. No sick contacts. Works in a company with [employer]. No previous history of environmental allergies. Denies acid reflux symptoms. No BRBPR or melena. Underlying HTN and T2 DM. [employer] audio rehabilitation supervisor utilized for this visit ([employer]; #[id number] Alexandra ). Objective Vitals: 10/11/24 0933 BP: 116/74 BP Location: Right arm Patient Position: Sitting BP Cuff Size: Adult Pulse: 69 Resp: 18 Temp: 98 ??F (36.7 ??C) TempSrc: Temporal SpO2: 99% Weight: 151 lb (68.5 kg) Physical Exam Vitals reviewed. Constitutional: General: Leonard is not in acute distress. Appearance: Normal [...] complication, without long-term current use of insulin ([facility]) (Primary) - Hemoglobin A1c; Future [...] not crush or chew. Patient presents to [facility] due to 4-months duration of dry cough [...] Description 10/24/2024 11:15 AM EDT Office Visit [facility] [address] [place] [address] Daljit Barrett MD [address] [place] [address] Scheduled Orders Name Type Priority Associated Diagnoses Orde r Schedule T-SPOT??.TB Lab Routine Cough in adult patient Expected: 10/11/2024 (Approximate), Expires: 10/11/2025 CBC auto differential Lab Routine Cough in adult patient Expected: 10/11/2024 (Approximate), Expires: 10/11/2025 Hemoglobin A1c Lab Routine Type 2 diabetes mellitus without complication, without long-term current use of insulin ([facility]) Expected: 10/11/2024 (Approximate), Expires: 10/11/2025 [...] patient documented in this encounter Results * XR Chest 2 Views (10/11/2024 10:25 AM EDT) Anatomical Region Laterality Modality Chest Radiographic Micaela ging 10/11/2024 10:2 5 AM EDT Narrative 10/11/2024 10:56 AM EDT ?[facility] ?[address] ?[place] [address] ?XRay Report ? Signed ? Patient: Rumama,Benze M ?MR#: [id number] ?? 41 ? : 1975 ?Acct:[id number] ? Age/Sex: 48 / M ?ADM Date: 10/11/24 ? Loc: HO.HHCX ? Attending Dr: Leonard Llamas MD ? Ordering Physician: Leonard Llamas MD ?? Date of Service: 10/11/24 ?? Procedure(s): XR chest 2V ?? Accession Number(s): [id number] ? cc: Leonard Llamas MD ? EXAMINATION: [...] ? Signed By: ?<Electronically signed by Daniel Eller Clement, MD in OV> ? 10/11/24 1053 ? DD/ 1025 ? TD/TT: 10/11/24 1030 ? General Surgery Physician Assistant: ? Procedure Note Valente Yao - 10/11/[address] [address] XRay Report Signed Patient: Leonard Leonardo MMR#: [id number] 39 : 1975Acct:[id number] Age/Sex: 48 / MADM Date: 10/11/24 Loc: HO.HHCX Attending Dr: Leonard Llamas MD Ordering Physician: Leonard Llamas MD Date of Service: 10/11/24 Procedure(s): XR chest 2V Accession Number(s): [id number] cc: Leonard Llamas MD EXAMINATION: XR CHEST CLINICAL INFORMATION: COUGH COMPARISON: October 08, 2020 TECHNIQUE: 2 views of the chest were obtained. FINDINGS: No consolidation, pleural fissure pneumothorax. No hyperinflation. Cardiomediastinal silhouette size is normal. Probable calcified plaque aortic arch. Osseous structures are intact. XR/XR chest 2V IMPRESSION: No acute airspace disease. Electronically signed by: Daniel Eller MD 10/11/2024 10:53 AM EDT RP Dictated By: Daniel Zaidi MD Signed By: <Electronically signed by Daniel Vaughan MDin OV> 10/11/24 1053 DD/ 1025 TD/TT: 10/11/24 1030 General Surgery Physician Assistant: us Leonard Llamas MD IMG XR PROCEDURES Final Result * Influenza B (ID NOW Rapid Molecular) (10/11/2024 9:47 AM EDT) Influenza B Negative Negative, Indeterminate [facility] Swab 10/11/2024 9:47 AM EDT us Leonard Llamas MD POINT OF CARE TEST ENTER/EDIT OR DERABLES Final Result Performing Organization Address [facility] Co de Phone Number [facility] [address] [place] [phone] * Influenza A (ID NOW Rapid Molecular) (10/11/2024 9:47 AM EDT) Influenza A Negative Negative, Indeterminate [facility] Swab 10/11/2024 9:47 AM EDT us Leonard Llamas MD POINT OF CARE TEST ENTER/EDIT OR DERABLES Final Result Performing Organization Address [facility] de Phone Number [facility] [address] [place] [phone] * POCT Rapid COVID Ag (10/11/2024 9:35 AM EDT) Rapid COVID Ag Negative Swab 10/11/2024 9:35 AM EDT Leonard Llamas MD POINT OF CARE TEST ENTER/EDIT OR DERABLES Final Result documented in this encounter Visit Diagnoses Diagnosis Type 2 diabetes mellitus without complication, without long-term current use of insulin ([facility])- Primary Cough in adult patient documented in this encounter Care Teams Plant Controls Specialist Relationship Specialty Start Date End Date Daljit Barrett MD [address] [place] [address] PCP - General Internal Medicine 09/09/16 documented as of this encounter
--- OUTSIDE RECORDS SUMMARY | 2024-10-11 11:38 | XMS_ITS | Encounter Summary ---
Author Organization [employer] Address 75 [facility] [address]t [place] [address] Care Team Providers Care Public Health Microbiologist Name Role Phone Daljit Barrett MD Primary Care Provider [phone] Encounter Details Date Type Department Care Team ([facility] Contact Info) Description 01/31/[address] [facility] [address] [place], [place] [phone] Daljit Barrett MD [address] [place], [place] [phone] Type 2 diabetes mellitus without complication, without long-term current use of insulin ([facility]) (Primary Dx) Social History Tobacco [...] Upcoming Encounters Date Type Department Care Team ([facility] Contact Info) Description 10/24/2024 11:15 AM EDT Office Visit [facility] [address] [place], [place] [phone] Daljit Barrett MD [address] [place], [place] [phone] documented as of this encounter Visit Diagnoses Diagnosis Type 2 diabetes mellitus without complication, without long-term current use of insulin ([facility])- Primary documented in this encounter Care Teams Public Health Microbiologist Relationship Specialty Start Date End Date Daljit Barrett MD [address] [place] [address] PCP - General Internal Medicine 09/09/16 documented as of this encounter
--- OUTSIDE RECORDS SUMMARY | 2024-10-11 11:38 | XMS_ITS | Encounter Summary ---
Author Organization [employer] Address [address] [facility] [address] [place] [address] Care Team Providers Care Industrial Maintenance Mechanic Name Role Phone Daljit Barrett MD Primary Care Provider [phone] Encounter Details Date Type Department Care Team (Late Contact Info) Description 02/28/2023 Orders Only [facility] [address] [place] [address] Daljit Barrett MD [address] [place] [address] Screening for colon cancer Social History Tobacco [...] Description 10/24/2024 11:15 AM EDT Office Visit [facility] [address] [place] [address] Daljit Barrett MD [address] [place] [address] documented as of this encounter Procedures Procedure Name Priority Date/Time Associated Diagnosis Comments LAB COLOGUARD?? COLON CANCER SCREEN Routine 03/13/2023 5:00 AM EDT Screening for colon cancer documented in this encounter Results * Cologuard?? colon cancer screening (03/13/2023 5:00 AM EDT) Cologuard Result Negative Negative 03/22/20 1:38 AM EDT [facility] (CLIA #:[id number]) Comment: NEGATIVE TEST RESULT. A negative Cologuard [...] cancer. ??Following a negative Cologuard result, the [place] [employer] and U.S. Multi-Society Task Force screening guidelines recommend a Cologuard re-screening interval of 3 years. References: [place] [employer] Guideline for Colorectal Cancer Screening: https://www.cancer.org/cancer/izavf-seoewq-xrupuy/czvugfnfq-axdvrihnu-tvtjood/ac s-rec ommendations.html.; Slava TONEY, Tri MATTHEW, Beatriz CortezK, Colorectal Cancer Screening: Recommendations for Physicians and Patients from the U.S. Multi-Society Task Force on Colorectal Cancer Screening , Am J Gastroenterology 2017; 112:8680-1049. TEST DESCRIPTION: Composite algorithmic analysis of stool [...] Oliva. et al, N Engl J Med 2014;370(14):2625-8007.) Cologuard may produce a false negative or false positive result (no colorectal cancer or precancerous polyp present at colonoscopy follow up). A negative Cologuard test result does not guarantee the absence of CRC or advanced adenoma (pre-cancer). The current Cologuard screening interval is every 3 years. ([place] [employer] and U.S. Multi-Society Task Force). Cologuard performance data in a 10,000 patient pivotal study using colonoscopy as the reference method can be accessed at the following location: www.[employer]/results. Additional description of the Cologuard test process, warnings and precautions can be found at www.[employer].com. Stool specimen (specimen) 03/13/2023 5:00 AM EDT 03/14/2023 7:43 PM EDT us Daljit Barrett MD LAB MOLECULAR DIAGNOSTICS O RDERABLES Final Result [facility] (CLIA #:[id number]) [address] [place], [place] [address] [phone] documented in this encounter Visit Diagnoses Diagnosis Screening for colon cancer Special screening for malignant neoplasms, colon documented in this encounter Care Teams Industrial Maintenance Mechanic Relationship Specialty Start Date End Date Daljit Barrett MD [address] [place] [phone] PCP - General Internal Medicine 09/09/16 documented as of this encounter
--- OUTSIDE RECORDS SUMMARY | 2024-10-11 11:38 | XMS_ITS | Encounter Summary ---
Author Organization [employer] Address [address] [facility] [address] [place] [address] Care Team Providers Care Production Analyst Name Role Phone Daljit Barrett MD Primary Care Provider [phone] Encounter Details Date Type Department Care Team (Late Contact Info) Description 10/11/2024 Telephone [facility] [address], [place] [phone] Leonard Llamas MD [address] [place] [address] Social History Tobacco Use Types Packs/Day Years [...] Description 10/24/2024 11:15 AM EDT Office Visit [facility] [address] [place], [place] [phone] Daljit Barrett MD [address] [place], [place] [phone] documented as of this encounter Visit Diagnoses Not on filedocumented in this encounter Care Teams Production Analyst Relationship Specialty Start Date End Date Daljit Barrett MD [address] [place] [phone] PCP - General Internal Medicine 09/09/16 documented as of this encounter
[2024-10-11 13:11] LABS: MANUAL DIFF FLAG NO
[2024-10-11 13:26] LABS: Basophils Percent Auto 0.5 % (0-2); Eosinophils Absolute Auto 0.1 X10*3/uL (0.0-0.4); Eosinophils Percent Auto 1.8 % (0-4); Hematocrit 42.9 % (42.0-52.0); Hemoglobin 14.7 g/dl (14.0-18.0); Lymphocytes Absolute Auto 2.1 X10*3/uL (1.2-4.9); Lymphocytes Percent Auto 55.2 % (20-40); Mean Corpuscular HGB Conc 34.3 g/dl (31.0-36.0); Mean Corpuscular Hemoglobin 29.8 pg (27.0-33.0); Mean Platelet Volume 12.1 fL (9.4-12.4); Monocytes Absolute Auto 0.3 X10*3/uL (0.1-1.2); Monocytes Percent Auto 7.5 % (2-11); Neutrophils Absolute Auto 1.4 x10*3/uL (2.0-8.3); Platelet Count 202 X10*3/uL (160-400); Red Blood Count 4.93 X10*6/uL (4.60-5.80); White Blood Count 3.9 X10*3/uL (4.8-10.8)
[2024-10-11 14:19] LABS: Alanine Aminotransferase 24 U/L (0-40); Albumin Level 4.3 g/dL (3.5-5.0); Alkaline Phosphatase 61 U/L (39-117); Anion Gap 10 (12-20); Aspartate Amino Transferase 20 U/L (5-37); Bilirubin Total 0.6 mg/dL (0.0-1.0); Blood Urea Nitrogen 12 mg/dL (9-16); Calcium 9.7 mg/dL (8.4-10.2); Carbon Dioxide 28 mmol/L (22-29); Chloride 103 mmol/L (96-108); Estimated Glomerular Filt Rate > 60; Glucose Random 277 mg/dL (60-115); Sodium 137 mmol/L (135-145); Total Protein 7.3 g/dL (6.5-8.0)
[2024-10-11 14:42] LABS: Hemoglobin A1C 526.0772 umol/L; Hemoglobin A1c % > 14.0 % (<6.0)
[2024-10-14 17:58] LABS: TS Negative Control Passed; TS Panel A 0; TS Panel B 2; TS Positive Control Passed; TSpotTB Negative (Negative)
== END 2024-10-11 11:08 | disposition home or self-care (01) ==
LOC: HO.HHCL 11:07
PROVIDERS: Visit Provider Family Medicine
DX: R05.9 Cough, unspecified (principal); Z13.1 Encounter for screening for diabetes mellitus
CPT/HCPCS: 36415; 80053; 83036; 85025; 86481